=== PATIENT | female | born 1995 | race Caucasian/White ===

== ENCOUNTER 2024-03-06 08:21 | Emergency (ER) | payer OTHER, MEDICAID, SELFPAY ==
[2024-03-06 08:34] VITALS: BP 100/79; PULSE 80; RESP 16; TEMP 36.9; O2SAT 100
--- NOTE | 2024-03-06 08:46 | ED.GENADULT ---
HPI - General Adult General Chief complaint: Skin/Abscess/Foreign Body Stated complaint: poison Rebekah rash Source: patient Mode of arrival: ambulatory Limitations: no limitations History of Present Illness HPI narrative: Patient presents for evaluation of a pruritic rash to the extremities x4 and torso for last 3 days. She was fishing and was exposed to poison rebekah just prior to the time of symptom onset. She has had similar allergic response to poison rebekah in the past. She denies any difficulty breathing or swelling. She is not taking any medications to assist with her symptoms. She is not diabetic. Related Data Allergies Allergy/AdvReac Type Severity Reaction Status Date / Time No Known Allergies Allergy Unknown Verified 03/06/24 08:28 Review of Systems Review of Systems: CONSTITUTIONAL: Denies fever, chills, or sweats. EYES: Denies visual changes, redness, or discharge. ENT: Denies rhinorrhea, congestion, sore throat, or otalgia. CARDIOVASCULAR: Denies chest pain, palpitations, or edema. RESPIRATORY: Denies cough or dyspnea. GASTROINTESTINAL: Denies abdominal pain, nausea, vomiting, or diarrhea. GENITOURINARY: Denies dysuria or hematuria. SKIN: Reports pruritic rash to torso and extremities x 4 MUSCULOSKELETAL: Denies back pain, joint pain, or myalgia. NEUROLOGIC: Denies headache, numbness, dizziness, or weakness. PSYCHIATRIC: Denies anxiety or depression. [facility] Past Medical History Medical History No pertinent past medical history Surgical History Surgical History No pertinent past surgical history Family History Family History Mother Family history unknown Social History Social History Smoking status: Current every day smoker Tobacco type: e-cigarettes/vaping Alcohol intake: never Substance use: never Additional living arrangements comments: Lives with boyfriend Gender identity (if verbalized by the patient): Female Sexual Orientation (if Verbalized by the Patient): Straight or Heterosexual Spiritual care concerns: No Exam Narrative: GENERAL: Well-appearing, well-nourished, and in no acute distress. HEAD: Normocephalic, atraumatic. EYES: PERRLA and EOMI. ENT: Nares clear, no rhinorrhea or epistaxis. Mucous membranes moist. Oropharynx without tonsillar hypertrophy exudate or other lesions. Bilateral TMs pearly bass nonbulging NECK: Supple. No adenopathy or masses. No carotid bruits or JVD CHEST: Clear to auscultation. No respiratory distress. No wheezes rales or rhonchi HEART: Regular rate and rhythm. No murmur heard. Normal peripheral pulses. ABDOMEN: Soft, nontender, nondistended, normal active bowel sounds. EXTREMITIES: Normal range of motion. No edema. SKIN: There is an erythematous vesicular rash to the torso and extremities x4 NEURO: No focal deficits. Alert and oriented x3. PSYCH: Normal mood and affect. Course Course Emergency Course: This is a 28-year-old female who presented for evaluation of her pruritic rash to her her torso and extremities x4. Her symptoms are consistent with poison rebekah dermatitis. Calamine lotion should help. Benadryl as needed. Follow up with primary provider. Go to the ER for worsening symptoms. Pt in agreement with plan of care. Level of Care: Express Care Visit Vital Signs Vital signs: Vital Signs Temperature 36.9 C 03/06/24 08:34 Pulse Rate 80 03/06/24 08:34 Respiratory Rate 16 03/06/24 08:34 Blood Pressure 100/79 03/06/24 08:34 Pulse Oximetry 100 03/06/24 08:34 Oxygen Delivery Room Air 03/06/24 08:34 Temperature 36.9 C 03/06/24 08:34 Pulse Rate 80 03/06/24 08:34 Respiratory Rate 16 03/06/24 08:34 Blood Pressure 100/79 03/06/24 08:34 Pulse Oxi
== END 2024-03-06 11:17 | disposition home or self-care (01) ==
PROVIDERS: Emergency Provider Nurse Practitioner
DX: L23.7 Allergic contact dermatitis due to plants, except food (principal); F17.290 Nicotine dependence, other tobacco product, uncomplicated
CPT/HCPCS: 99213; G0463

== ENCOUNTER 2024-11-14 13:06 | Emergency (ER) | payer BC, SELFPAY ==
[2024-11-14 13:15] VITALS: BP 118/69; PULSE 118; RESP 14; TEMP 37.6; O2SAT 98
--- OUTSIDE RECORDS SUMMARY | 2024-11-14 13:19 | XMS_ITS | Clinical Summary ---
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
--- OUTSIDE RECORDS SUMMARY | 2024-11-14 13:19 | XMS_ITS | Encounter Summary ---
Author Organization [employer] [facility] Address [address] [place] [address] Care Team Providers Care Hooker Laster Name Role Phone Unavailable Primary Care Provider Unavailabl e Encounter Details Date Type Department Care Team (Late st Contact Info) Description 04/12/2007 Outpatient Historical [facility] Bess Anton MD [address] [place] [address] Er, Authorized P NO ADDRESS ON FILE Unspecified Episodic Mood Disorder (Primary Dx) Social History Tobacco Use Types Packs/Day Years Used Date Smoking Tobacco: Never Assessed Comments Unknown Sex and Gender Information Value Date Recorded Sex Assigned at Not on file 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 GONORRHOEAE, DNA Routine 04/12/2007 2:25 PM CDT DRUG SCREEN, URINE Routine 04/12/2007 2: 25 PM CDT documented in this encounter Results * HIV ANTIBODY W/REFLX CONFIRMATION (04/12/2007 2:40 PM CDT) HIV-1 AND 2 ABS NON-REACTI VE NON-REACT MICKEY INTERFACE SYSTEM Comment: Effective March 08, 2007, HIV 1/2 Antibody Screen with Reflexed Confirmati on has replaced HIV-1 Antibody Screen. HIV-1 Antibody Screen is no longer offered due to lack of available kits from the director of content and programming. A NON-REACTIVE HIV 1/2 ANTIBODY RESULT DOES NOT EXCLUDE HIV INFECTION SINCE THE TIME FRAME FOR SEROCONVERSION IS VARIABLE. IF ACUTE HIV INFECTION IS SUSPECTED, ANTIBODY RETESTING AND NUCLEIC ACID AMPLIFICATION (HIV DNA/RNA) TESTING IS RECOMMENDED. Lab test performed by: [facility] [id number] [address] JOB FUENTES MD 04/12/2007 2:40 PM CDT Bess Osman MD CHEMISTRY ORDERABLES Edite d Performing Organization Address City/[facility] Co de Phone Number INTERFACE SYSTEM Refer to clinic/hospital department * RPR (04/12/2007 2:40 PM CDT) Pathologist [facility] RPR NON-REACTI VE NON-REACT MICKEY INTERFACE SYSTEM Comment: Lab test performed by: [employer] [id number] [address] JOB FUENTES MD 04/12/2007 2:40 PM CDT Bess Osman MD CHEMISTRY ORDERABLES Edite d Performing Organization Address City/[facility] Co de Phone Number INTERFACE SYSTEM Refer to clinic/hospital department * DRUG SCREEN, URINE (04/12/2007 2:25 PM CDT) COMMENT, TOXICOLOGY See Separate Comment INTERFACE SYSTEM Comment: Urine sample was not handled as a legal specimen and was received without a chain of custody. The result should be used only for medical purposes. False positive and erroneous results can occur due to cross-reacting sub stances and other factors. Depending on the clinical context, confirmation of all presumptive positive results by a more specific alternate method is recommended. A negative result indicates the analyte, if present, is below the screening threshold. Drug Ref. Range Screening Threshold Amphetamines Negative 1000 ng/mL Barbituates Negative 200 ng/mL Benzodiazepines Negative 300 ng/mL Cannabinoids Negative 50 ng/mL Cocaine Metabolites Negative 300 ng/mL Opiates Negative 300 ng/mL Phencycldine Negative 25 ng/mL The cut-off threshold, known cross-reactive compounds, drugs,and specificity information for each of the urine drugs of abuse are available on the [facility] Intranet at: [email or web address] Select: Drugs of Abuse ? [facility] To inquire about any potential cross-reactivity of a specific drug not listed at this site, please contact the Chemistry Lab at . AMPHETAMINE QUAL, URINE Negative Negative INTERFACE SYSTEM BARBITURATE QUAL, URINE Negative Negative INTERFACE SYSTEM BENZODIAZEPINE QUAL, URINE Negative Negative INTERFACE SYSTEM CANNABINOIDS QUAL, URINE Presumptive Positive Negative INTERFACE SYSTEM COCAINE QUAL URINE Negative Negative INTERFACE SYSTEM OPIATE QUAL, URINE Negative Negative INTERFACE SYSTEM PCP QUAL, URINE Negative Negative INTE [employer]ACE SYSTEM 04/12/2007 2:25 PM CDT Bess Osman MD URINE ORDERABLES Edited INTERFACE SYSTEM Refer to clinic/hospital department * CHLAMYDIA/N. GONORRHOEAE, DNA (04/12/2007 2:25 PM CDT) CHLAMYDIA TRACHOMATIS DNA NOT DETECTED NOT DETECTED INTERFACE SYSTEM NEISSERIA GONORRHOEAE DNA NOT DETECTED NOT DETECTED INTERFACE SYSTEM Comment: Lab test performed by: [email or web address] [id number] [address] JOB FUENTES 04/12/2007 2:25 PM CDT Bess Osman MD BODY FLUIDS AND STOOLS Segundo amena INTERFACE SYSTEM Refer to clinic/hospital department documented in this encounter Visit Diagnoses Diagnosis Unspecified episodic mood disorder- Primary documented in this encounter
--- NOTE | 2024-11-14 15:30 | PC.NURSE ---
pt walked out before being seen and did not notify commercial real estate agent
--- OUTSIDE RECORDS SUMMARY | 2024-11-14 15:40 | XMS_ITS | Encounter Summary ---
Author Organization [employer] [facility] Address [address] [place] [address] Care Team Providers Care Mining Captain Name Role Phone Unavailable Primary Care Provider Unavailabl e Encounter Details Date Type Department Care Team (Late st Contact Info) Description 04/12/2007 Outpatient Historical [facility] Bess Anton MD [address] [place] [address] Er, Authorized P NO ADDRESS ON FILE Unspecified Episodic Mood Disorder (Primary Dx) Social History Tobacco Use Types Packs/Day Years Used Date Smoking Tobacco: Never Assessed Comments Unknown Sex and Gender Information Value Date Recorded Sex Assigned at Not on file 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 A NON-REACTIVE HIV 1/2 ANTIBODY RESULT DOES NOT EXCLUDE HIV INFECTION SINCE THE TIME FRAME FOR SEROCONVERSION IS VARIABLE. IF ACUTE HIV INFECTION IS SUSPECTED, ANTIBODY RETESTING AND NUCLEIC ACID AMPLIFICATION (HIV DNA/RNA) TESTING IS RECOMMENDED. Lab test performed by: [facility] [id number] [address] JOB FUENTES MD 04/12/2007 2:40 PM CDT Bess Osman MD CHEMISTRY ORDERABLES Edite d Performing Organization Address City/[facility] Co de Phone Number INTERFACE SYSTEM Refer to clinic/hospital department * RPR (04/12/2007 2:40 PM CDT) Pathologist [facility] RPR NON-REACTI VE NON-REACT MICKEY INTERFACE SYSTEM Comment: Lab test performed by: [facility] [id number] [address] JOB FUENTES MD 04/12/2007 2:40 PM CDT Bess Osman MD CHEMISTRY ORDERABLES Edite d Performing Organization Address City/[facility] Co de Phone Number INTERFACE [...] drugs of abuse are available on the [facility] Intranet at: [email or web address] Select: Drugs of Abuse ? [facility] To inquire about any potential cross-reactivity of [...] INTERFACE SYSTEM Comment: Lab test performed by: [email or web address] [id number] [address] JOB FUENETS 04/12/2007 2:25 PM CDT Bess Osman MD BODY FLUIDS AND STOOLS [facility] INTERFACE SYSTEM Refer to clinic/hospital department documented in this encounter Visit Diagnoses Diagnosis Unspecified episodic mood disorder- Primary documented in this encounter
--- OUTSIDE RECORDS SUMMARY | 2024-11-14 15:40 | XMS_ITS | Clinical Summary ---
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
== END 2024-11-14 17:15 | disposition left against medical advice (07) ==
LOC: ANHED 15:37
DX: R50.9 Fever, unspecified (principal)
CPT/HCPCS: 99199

== ENCOUNTER 2024-11-14 15:02 | Emergency (ER) | payer BC, SELFPAY ==
[2024-11-14 15:15] VITALS: BP 110/71; PULSE 116; RESP 16; TEMP 37.6; O2SAT 99
--- NOTE | 2024-11-14 15:32 | ED.URI ---
HPI - URI/Sore Throat General Chief Complaint: Upper Respiratory Infection Stated Complaint: Fever/Cough Time Seen by Provider: 11/14/24 15:32 Source: patient, RN notes reviewed and old records reviewed Mode of arrival: ambulatory Limitations: no limitations History of Present Illness HPI Narrative: 29 year old [facility] of headache starting last night with symptoms progressing to sore throat, fever up 102.3F highest,, cough, hot flashes and episodes of diarrhea. Patient reports that she just hurts all over and has taken Ibuprofen for her symptoms and some cough drops. Patient reports that she has not had any nausea or vomiting denies any shortness of breath. MD elicited complaint: fever, cough, sore throat and other (diarrhea, body aches) Onset (ago): day(s) (1) Severity: moderate Able to tolerate fluids by mouth: Yes Treatments prior to arrival: ibuprofen and other (cough drops) Related Data Allergies Allergy/AdvReac Type Severity Reaction Status Date / Time amoxicillin Allergy Unknown Unknown Verified 11/14/24 15:23 Review of Systems Review of Systems: CONSTITUTIONAL:Reports malaise, chills, sweats, or fever. EYES: Denies visual changes, redness, or discharge. ENT: Reports rhinorrhea, congestion, sinus pain,no otalgia and positive for sore throat. CARDIOVASCULAR: Denies chest pain, palpitations, or edema. RESPIRATORY: Reports cough.? Denies dyspnea. GASTROINTESTINAL: Denies abdominal pain, no nausea, vomiting,positive diarrhea SKIN: Denies rash or itching. MUSCULOSKELETAL: Reports myalgia. NEUROLOGIC: Positive for headache. All systems reviewed & are unremarkable except as noted in HPI and below PMFSH Past Medical History Medical History No pertinent past medical history Surgical History Surgical History No pertinent past surgical history Family History Family History Mother Family history unknown Social History Social History Smoking status: Current every day smoker Tobacco type: e-cigarettes/vaping Alcohol intake: never Substance use: never Additional living arrangements comments: Lives with boyfriend Gender identity (if verbalized by the patient): Female Sexual Orientation (if Verbalized by the Patient): Straight or Heterosexual Spiritual care concerns: No Comments At time of signature, agree with nursing past medical, surgical, social and family history. There is no relevant family history pertinent to the presenting complaint Exam Narrative: GENERAL: Ill-appearing, well-nourished, and in no acute distress. HEAD: Normocephalic EYES: PERRLA, conjunctivae clear ENT: Nares clear, turbinates edematous and erythematous, clear discharge. Mucous membranes moist. TM pearly bass with dull light reflex bilaterally; no tragal tenderness. Oropharynx erythematous without lesions. Tonsils not enlarged and without exudate, no drooling, no hoarseness, no trismus, uvula midline.post nasal drainage NECK: Supple. No lymphadenopathy CHEST: Clear to auscultation, breath sounds equal. No wheezing, rhonchi, rales, or stridor. No respiratory distress, speaks in full sentences.dry cough noted SAO2 99% on room air HEART: Regular rate and rhythm. No murmur heard. SKIN: Warm, dry, no rash. NEURO: Alert and oriented x3. PSYCH: Normal mood and affect Course Course Emergency Course: Patient is aware of diagnosis, understands and agrees to treatment plan.? Anticipatory guidance given.? Patient agrees to follow-up as directed and is aware of reasons to seek care at the emergency department. Portions of this record may have been created with voice recognition software Level of Care: Express Care Visit Vital Signs Vital signs: Vital Signs Temperature 37.6 C H 11/14/24 15:15 Pulse Rate 116 H 11/14/24 15:15 Respiratory Rate 16 11/14/24 15:15 Blood Pressure 110/71 11/14/24 15:15 Pulse Oximetry 99 11/14/24 15:15 Temperature 37.6 C H 11/14/24 15:15 Pulse Rate 116 H 11/14/24 15:15 Respiratory Rate 16 11/14/24 15:15 Blood Pressure 110/71 11/14/24 15:15 Pulse Oximetry 99 11/14/24 15:15 Oxygen Delivery Room Air 11/14/24 15:23 Reviewed MDM - URI/Sore Throat MDM Narrative Medical decision making narrative: Differential diagnosis considered: Arroyo virus, strep pharyngitis, allergic rhinitis, upper respiratory tract infection, sinusitis, rhinosinusitis, nasopharyngitis. viral pharyngitis, otitis media, otitis externa, pneumonia, bronchitis, viral cough syndrome, viral syndrome, and influenza.? Exam findings show no acute concerns or changes; patient is non-toxic appearing and is in no distress.? Patient is appropriate for outpatient treatment and follow-up. Differential Diagnosis Differential diagnosis: Likely upper respiratory infection, viral infection, influenza, pharyngitis and other (strep pharyngitis, COVID) Medical Records Attestation: I reviewed the patient's medical records. Lab Data Attestation: I reviewed the patient's lab results. Lab results narrative: Strep screen negative, strep culture sent, COVID Antigen negative, Influenza A positive, Influenza B negative Labs: Lab Results 11/14/24 11/14/24 Range/Units 15:46 15:48 POC Influenza A Ag Positive (Negative) POC Influenza B Ag Negative (Negative) POC SARS CoV-2 Ag Negative (Negative) POC Grp A Strep Screen Negative (Negative) reviewed Critical Care Time Critical Care Time Critical Care Time: No Discharge Plan Discharge Clinical Impression: Influenza A Patient Disposition: Home, Self-Care Condition: Stable Instructions: Antibiotic Form, Influenza (ED) Additional Instructions: Increase fluids especially juices and water [id number] cough and cold medicine of your choice for your symptoms Tylenol or ibuprofen for any fever pain Cough tablets as directed for cough--do not bite, chew or suck on--swallow whole recommend Delsym or Robitussin cough syrup heat to the face 20-30 minutes 4-6 times a day for pain Salt water gargles, throat lozenges or throat sprays as desired If your symptoms persist, change or worsen significantly before you can contact your personal physician then please, without delay, go to the emergency department for further evaluation. Follow-up with PCP in 7-10 days or sooner if needed monitor for fevers every 4 hours strep culture sent Patient Language: Solomon Islander Prescriptions: New oseltamivir [Tamiflu] 75 mg capsule 75 mg PO Q12H 5 Days Qty: 10 0RF No Action prednisone 20 mg tablet See Rx Instructions .ROUTE .COMPLEX Qty: 18 0RF Rx Instructions: take 2 tabs po daily x 5 days, then 1 tab po daily x 5 days, then 0.5 tabs po daily x 6 days Follow-up/Referrals: PHYSICIAN,DIGITAL MUSIC INSTRUCTOR [Primary Care Provider] - Stand Alone Forms: Work/School Release IP Time of Disposition: 15:49 Quality Burnett Coma Scale Eyes: Open Verbal: Oriented and Alert Motor: Follows Commands Juliane Coma Total Score: 15
[2024-11-14 15:47] LABS: EDCOVIDSCREEN Negative (Negative); EDSTREPNEGPOS1 Negative (Negative)
[2024-11-14 15:51] LABS: EDINFLUASCREEN Positive (Negative); EDINFLUBSCREEN Negative (Negative)
== END 2024-11-14 15:52 | disposition home or self-care (01) ==
PROVIDERS: Emergency Provider Registered Nurse
DX: J10.1 Influenza due to other identified influenza virus with other respiratory manifestations (principal); F17.290 Nicotine dependence, other tobacco product, uncomplicated; Z20.822 Contact with and (suspected) exposure to COVID-19
CPT/HCPCS: 87081; 87426; 87804; 87880; 99213; G0463